=== PATIENT | male | born 1970 | race Caucasian/White ===

== ENCOUNTER 2018-08-14 19:37 | Emergency (ER) | payer MEDICARE, MEDICAID ==
[2018-08-14 20:08] VITALS: BP 139/88
--- NOTE | 2018-08-14 21:16 | EDM.PDOC ---
ED HPI GENERAL MEDICAL PROBLEM - General Chief Complaint: Upper Extremity Injury/Pain Stated Complaint: BROKE ARM Time Seen by Provider: 08/14/18 20:22 Source of Information: Reports: Patient History Limitations: Reports: No Limitations - History of Present Illness INITIAL COMMENTS - FREE TEXT/NARRATIVE: This patient was shoveling snow yesterday and fell on his outstretched right hand. He complains of pain in the distal forearm. No other injuries. Has good sensation in the fingers. Right Wrist Pain Score (Numeric/FACES): 4 - Related Data Allergies Allergy/AdvReac Type Severity Reaction Status Date / Time penicillin Allergy Cannot Verified 08/14/18 20:08 Remember Home Meds: Home Meds ARIPiprazole [Abilify] 1 tab PO DAILY 01/04/15 [History] Ibuprofen [Advil Liqui-Gels] 2 tab PO ASDIRECTED 01/04/15 [History] Topiramate 2 tab PO DAILY 08/14/18 [History] buPROPion HCl [Wellbutrin Xl] 300 mg PO DAILY 08/14/18 [History] metFORMIN [Glucophage] 500 mg PO BIDMEALS 08/14/18 [History] Past Medical History HEENT History: Reports: Impaired Vision Psychiatric History: Reports: Depression, Other (See Below) Other Psychiatric History: Schitzo affective disorder Endocrine/Metabolic History: Reports: Diabetes, Type II Dermatologic History: Reports: Eczema - Infectious Disease History Infectious Disease History: Reports: Chicken Pox - Past Surgical History Other GI Surgeries/Procedures: hemmorhoidectomy Social & Family History - Tobacco Use Smoking Status *Q: Current Some Day Smoker Years of Tobacco use: 30 Packs/Tins Daily: 1 Used Tobacco, but Quit: No Second Hand Smoke Exposure: Yes - Caffeine Use Caffeine Use: Reports: Coffee, Soda - Alcohol Use Days Per Week of Alcohol Use: 0 - Recreational Drug Use Recreational Drug Use: Yes Recreational Drug Type: Reports: Marijuana/Hashish Recreational Drug Use Frequency: Rarely Review of Systems - Review of Systems Review Of Systems: See Below ED EXAM, GENERAL - Physical Exam Exam: See Below Exam Limited By: No Limitations General Appearance: Alert, No Apparent Distress, Obese Extremities: Other (There seems to be a little bit of swelling generalized to the hand and distal forearm however this man is pretty heavy sets it's difficult to tell. There is seems to be some tenderness to the area of the distal radius. Some mild tenderness over the scaphoid area. Neurovascular tendon all intact.) Course - Vital Signs Last Recorded V/S: Last Vital Signs Temp 37.7 C 08/14/18 20:17 Pulse 103 H 08/14/18 20:17 Resp 16 08/14/18 20:17 BP 139/88 08/14/18 20:17 Pulse Ox 93 L 08/14/18 20:17 - Orders/Labs/Meds Orders: Active Orders 24 hr Category Date Time Status Wrist Comp Min 3V Rt [CR] Stat Exams 08/14/18 20:28 Taken - Re-Assessments/Exams Free Text/Narrative Re-Assessment/Exam: 08/14/18 21:12 X-ray shows nondisplaced distal radius fracture or Colles' fracture and ulnar styloid fracture. All carpal bones look okay. Radiology report pending Free Text/Narrative Re-Assessment/Exam: 08/14/18 21:14 sugar tong splint and sling were placed on the right forearm. He was given instructions on care of the splint. He hasn't needed any pain medications she's just use Tylenol ibuprofen at seems to be working for him Departure - Departure Time of Disposition: 21:14 Disposition: Home, Self-Care 01 Condition: Fair Clinical Impression: Colles' fracture of right radius - Discharge Information Referrals: Moisés Carlisle PA [Primary Care Provider] - Additional Instructions: Wear the sling and splint for comfort and protection. Elevation and ice may help. He's Tylenol and or ibuprofen for pain. If the splint seems to be impairing circulation to your fingers that is at least start turning blue or going numb you can loosen the Yaron wrap. The splint can be removed if needed but it's should be left on for safety. You should be contacted on Friday for an appointment to the orthopedic surgeon sometime next week. Orthopedic surgeon can determine when you can go back to work - My Orders Last 24 Hours: My Active Orders 08/14/18 20:28 Wrist Comp Min 3V Rt [CR] Stat - Assessment/Plan Last 24 Hours: My Active Orders 08/14/18 20:28 Wrist Comp Min 3V Rt [CR] Stat
--- NOTE | 2018-08-14 21:41 | CRLCR ---
Indication: Injury and pain Technique: Right wrist 3 view Comparison: None Findings: Bones: There is an oblique nondisplaced fracture of the distal radial metaphysis (best seen on the lateral view). In addition there is an ulnar styloid avulsion without displacement. Joint spaces: Unremarkable. Soft tissues: Mild soft tissue swelling. Impression: Nondisplaced distal radial metaphyseal fracture and nondisplaced ulnar styloid avulsion. Dictated by Diogenes Diggs MD @ Aug 14 2018 9:37PM Signed by Dr. Diogenes Diggs @ Aug 14 2018 9:39PM
== END 2018-08-14 21:32 | disposition home or self-care (01) ==
LOC: JP.ED 19:37
DX: S52.531A Colles' fracture of right radius, initial encounter for closed fracture (principal); S52.611A Displaced fracture of right ulna styloid process, initial encounter for closed fracture; F17.210 Nicotine dependence, cigarettes, uncomplicated; F32.9 Major depressive disorder, single episode, unspecified; E11.9 Type 2 diabetes mellitus without complications; Z79.899 Other long term (current) drug therapy; Z79.84 Long term (current) use of oral hypoglycemic drugs; Z88.0 Allergy status to penicillin; Y93.H1 Activity, digging, shoveling and raking
CPT/HCPCS: 29125; 73110-RT; 99283-25

== ENCOUNTER 2024-04-11 08:47 | Emergency (ER) | payer MEDICARE, MEDICAID ==
[2024-04-11 08:53] VITALS: BP 149/89; PULSE 97
== END 2024-04-11 09:57 | disposition home or self-care (01) ==
LOC: JP.ED 08:47
DX: K04.7 Periapical abscess without sinus (principal); E11.9 Type 2 diabetes mellitus without complications; F17.210 Nicotine dependence, cigarettes, uncomplicated; Z79.84 Long term (current) use of oral hypoglycemic drugs; Z88.0 Allergy status to penicillin
CPT/HCPCS: 99283